=== PATIENT | female | born 1985 | race Asian ===

== ENCOUNTER 2023-09-08 21:46 | Outpatient (CLI) | payer MEDICAID, SELFPAY | END 2023-09-08 21:47 | disposition home or self-care (01) | LOC: AMB 09-15 21:52 | PROVIDERS: Visit Provider Emergency Medicine | DX: S09.90XA Unspecified injury of head, initial encounter (principal); Y04.2XXA Assault by strike against or bumped into by another person, initial encounter; Y92.009 Unspecified place in unspecified non-institutional (private) residence as the place of occurrence of the external cause | CPT/HCPCS: A0998 ==